=== PATIENT | male | born 1985 | race Caucasian/White ===

== ENCOUNTER 2017-01-01 12:48 | Emergency (ER) | payer BC ==
[2017-01-01 13:08] VITALS: BP 195/98
--- NOTE | 2017-01-01 13:27 | UC ---
Cardiac HPI - HPI Summary HPI Summary: The patient comes in today for: 1. Jaw/chest pain: Onset: 3 days ago. Palliative/provocative: Nothing seems to make it better or worse. Quality: Sharp. Region: Right jaw, and chest. Severity: Right now, it is 0/10. When "it hits" it is a 7/10 Time: Duration--"seconds." Associated symptoms: Pain: It starts at the ankle of the right jaw. It will shoot up to the right and to the right chin. This pain will last a few seconds. Then he will have a pain that goes down the back of his neck. He states that it is "down the midline" and down to the middle of his chest. At this point, the patient points to the lower sternum. He states that the pain will "radiate" to the sides. He comes in now because it has been continuing. Frequency: 3-5 times a day. Duration: "5-10 seconds." Cough: None. Temperature: None. Shortness of breath: None. Previous disease: He has a history of HTN and when 12-13 years old he was told that he had an enlarged heart which is OK now. 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 * - History of Current Complaint Chief Complaint: UCCardiac Stated Complaint: JAW AND NECK PAIN Time Seen by Provider: 01/01/17 13:14 Hx Obtained From: Patient - Allergy/Home Medications Allergies/Adverse Reactions: Allergies Allergy/AdvReac Type Severity Reaction Status Date / Time Penicillins Allergy Rash Verified 01/01/17 13:08 seasonal allergies Allergy Congestion Uncoded 01/01/17 13:08 Home Medications: Home Medications Fexofenadine-Pseudoephedrine [Veronica-D 24 Hour Allergy 180-240 mg] 1 01/01/17 [ History] Multiple Vitamins W/ Minerals [Multivitamin Men] 1 01/01/17 [History] PMH/Surg Hx/FS Hx/Imm Hx Previously Healthy: No - History of allergic rhinitis Endocrine History Of: Denies: Diabetes, Thyroid Disease, Hyperthyroidism, Hypothyroidism, Dyslipidemia Cardiovascular History Of: Reports: Cardiac Disorders - History of enlarged heart (now OK) when teenager., Hypertension - Resolved at age ~age 20 yrs Respiratory History Of: Reports: Asthma GI/ History Of: Denies: Gastroesophageal Reflux, Ulcer, Gastrointestinal Bleed, Gall Bladder Disease, Kidney Stones, Diverticulitis, Renal Disease, Urosepsis Neurological History Of: Denies: TIA, CVA, Dementia, Seizures, Migraine Psychological History Of: Denies: Anxiety, Depression, Bipolar Disorder, Schizophrenia, Post Traumatic Stress Disorder Cancer History Of: Denies: Lung Cancer, Colorectal Cancer, Breast Cancer, Prostate Cancer, Cervical Cancer Other History Of: Negative For: HIV, Hepatitis B, Hepatitis C, Anticoagulant Therapy - Surgical History Surgical History: None - Family History Known Family History: Positive: Hypertension, Diabetes, Other - No family history of UTI, KIdney stones, or kidney disease Negative: Cardiac Disease - Social History Occupation: Employed Full-time Alcohol Use: Occasionally Substance Use Type: None Smoking Status (MU): Never Smoked Tobacco Review of Systems Constitutional: Negative Skin: Negative Eyes: Negative ENT: Negative Respiratory: Negative Cardiovascular: Chest Pain Gastrointestinal: Negative Genitourinary: Negative All Other Systems Reviewed And Are Negative: Yes Physical Exam Triage Information Reviewed: Yes Appearance: Well-Appearing, No Pain Distress, Well-Nourished Vital Signs: Initial Vital Signs Temp 98.8 F 01/01/17 13:03 Pulse 124 01/01/17 13:03 Resp 20 01/01/17 13:03 BP 195/98 01/01/17 13:03 Pulse Ox 98 01/01/17 13:03 Blood pressure: Right arm, large cuff, sittin/70 Vital Signs Reviewed: Yes Eyes: Positive: Conjunctiva Clear. Negative: Discharge ENT: Positive: Hearing grossly normal, Other: - There is tenderness of palpation of the right middle scalene muscle as well as the right styloid process. However, pressure on these areas did not produce any pain in the chest. However, pressure in these areas did relate to the jaw pain that he has had.. Negative: Pharyngeal erythema, Nasal congestion, Nasal drainage, TM bulging, TM dull, TM red, Tonsillar swelling, Tonsillar exudate Dental: Negative: Gross Decay/Caries @, Dental Fracture @ Neck: Positive: Supple, Nontender, No Lymphadenopathy, Other: - NO enlarged lymph nodes of the anterior, posterior cervical, and supraclavicular areas.. Negative: Nuchal Rigidity Respiratory: Positive: Lungs clear, No respiratory distress, No accessory muscle use. Negative: Crackles, Wheezing Cardiovascular: Positive: RRR, No Murmur Abdomen Description: Positive: Nontender, No Organomegaly, Soft. Negative: Distended, Guarding Musculoskeletal: Positive: Strength Intact, ROM Intact, No Edema, Other: - He has tenderness to palpation of the right upper sternal border/rib conjunction. Neurological: Positive: Alert, Muscle Tone Normal Psychological: Positive: Normal Response To Family, Age Appropriate Behavior, Consolable Skin: Negative: rashes, breakdown Diagnostics - Laboratory Diagnostic Studies Completed/Ordered: EKG: Rate: 85. Rhythm: Sinus. Ectopy: None. Acute changes: None. - Radiology No standard instances Xray Interpretation: No Acute Changes Radiology Interpretation Completed By: Radiologist - Assessment/Plan Course Of Treatment: The patient was told that I don't know for sure what is causing his chest. pain. The patient was also told that there are many causes for chest pain--. some which are benign and some which are life-threatening. Furthermore, it was. mentioned that the life-threatening causes of chest pain can present with. minimal, atypical, or even no symptoms. Becasue of these facts and the fact. that we don't have here all the testing methods commonly used to assess chest. pain, and their timely resuts, my formal recommendation is for the patient to go to. the [facility] ([facility]) ER. However, the patient was told that since he did have physical findings which may explain his symptoms-- as atypical as they are--he may also do well with NSAIDS. He was told honestly I would not go to the ER and would take NSAIDS, but if I were wrong in that situation, I would be the one paying the lara if I were wrong. All his questions were answered and he decided to not go to the ER. - Clinical Impression Provider Diagnoses: Neck pain. Chest pain. Muscular strain. Discharge - Discharge Plan Condition: Stable Disposition: HOME Patient Education Materials: Chest Pain (ED), Cervical Sprain (ED) Referrals: Jacques Anthony MD [Primary Care Provider] - As Soon As Possible (If you are not going to the ER, please contact your primary care provider as soon as you can for re-evaluation. If you get worse, please re-consider going to the ER. )
--- NOTE | 2017-01-01 13:53 | RAD ---
INDICATION: Chest pain COMPARISON: None TECHNIQUE: PA and lateral dual-energy views were obtained. FINDINGS: Bones/Soft Tissues: There are no acute bony findings. Cardiomediastinal: The cardiomediastinal silhouette is normal. Lungs: There are no infiltrates. There is no pneumothorax. Pleura: There are no pleural effusions. Other: None IMPRESSION: NORMAL CHEST.
== END 2017-01-01 14:30 | disposition left against medical advice (07) ==
LOC: UCEAST 12:48
DX: M54.2 Cervicalgia (principal); R07.9 Chest pain, unspecified; T14.8 Other injury of unspecified body region; Z88.0 Allergy status to penicillin; J45.909 Unspecified asthma, uncomplicated; X58.XXXA Exposure to other specified factors, initial encounter; Y92.9 Unspecified place or not applicable
CPT/HCPCS: 71020; 93005; 99212; G0463

== ENCOUNTER 2017-11-05 08:05 | Emergency (ER) | payer BC ==
[2017-11-05 08:23] VITALS: BP 146/67
--- NOTE | 2017-11-05 08:37 | UC ---
Respiratory Complaint HPI - HPI Summary HPI Summary: Patient presents with complaints of chest congestion, cough with brownish sputum. He states he has been ill with cough x 9 days, he states his entire family has been ill. He also states he has had redness and swelling of his right lower eye lid, he states he has mild discomfort of the area that is red, otherwise he denies any visual changes or eye pain with movement. He denies any fever, chills, headache, neck pain, chest pain, dyspnea, abdominal pain, nausea , vomiting, or diarrhea. - History of Current Complaint Chief Complaint: UCGeneralIllness Stated Complaint: COUGH AND EYE COMPLAINT Time Seen by Provider: 11/05/17 08:18 Hx Obtained From: Patient Onset/Duration: Gradual Onset, Lasting Days Timing: Constant Severity Currently: Mild Character: Cough: Productive Aggravating Factors: Exertion, Deep Breaths, Recumbent Position Alleviating Factors: Upright Position, Spontaneous Resolution Associated Signs And Symptoms: Positive: URI, Nasal Congestion - Risk Factors Pulmonary Embolism Risk Factors: Negative Cardiac Risk Factors: Negative Pseudomonas Risk Factors: Negative Tuberculosis Risk Factors: Negative - Allergies/Home Medications Allergies/Adverse Reactions: Allergies Allergy/AdvReac Type Severity Reaction Status Date / Time Penicillins Allergy Rash Verified 11/05/17 08:23 seasonal allergies Allergy Congestion Uncoded 11/05/17 08:23 PMH/Surg Hx/FS Hx/Imm Hx Previously Healthy: Yes Other History Of: Negative For: HIV, Hepatitis B, Hepatitis C, Anticoagulant Therapy - Surgical History Surgical History: None - Family History Known Family History: Positive: Hypertension, Diabetes, Other - No family history of UTI, KIdney stones, or kidney disease Negative: Cardiac Disease - Social History Occupation: Employed Full-time Lives: With Family Alcohol Use: Rare Substance Use Type: None Smoking Status (MU): Never Smoked Tobacco - Immunization History Most Recent Influenza Vaccination: NOT UTD Review of Systems Constitutional: Negative Skin: Negative Eyes: Negative, Other - sye on right lower lid ENT: Negative Respiratory: Cough Cardiovascular: Negative Gastrointestinal: Negative Genitourinary: Negative Motor: Negative Neurovascular: Negative Musculoskeletal: Negative Neurological: Negative Psychological: Negative Is Patient Immunocompromised?: No All Other Systems Reviewed And Are Negative: Yes Physical Exam Triage Information Reviewed: Yes Appearance: Well-Appearing Vital Signs: Initial Vital Signs Temp 98.1 F 11/05/17 08:17 Pulse 91 11/05/17 08:17 Resp 18 11/05/17 08:17 BP 146/67 11/05/17 08:17 Pulse Ox 97 11/05/17 08:17 Vital Signs Reviewed: Yes Eyes: Positive: Other: - right eye lower lid with localized area of erythma, induration. no flucuance noted. ENT Exam: Normal Neck exam: Normal Neck: Positive: 1 Respiratory: Positive: Lungs clear, Normal breath sounds, No respiratory distress Cardiovascular Exam: Normal Abdominal Exam: Normal Musculoskeletal Exam: Normal Neurological Exam: Normal Psychological Exam: Normal Skin Exam: Normal UC Diagnostic Evaluation - Laboratory O2 Sat by Pulse Oximetry: 97 Respiratory Course/Dx - Course Course Of Treatment: Patient presents with complaints of right eye lid swelling , with localized area of induration, findings consistent with sty and no evidence of periorbital cellulitis. He also presents clincally with bronchitis. He is going to be treated with erythrmycin eye ointment, and zpk for bronchitis. I told the patient that if his eye swelling get worse he would need to go to the ER, and if he need re-evaluation Monday I referred him to Dr. Castañeda. He verbalzied understanding of and in agreement with the discharge plan. - Differential Dx/Diagnosis Differential Diagnosis/HQI/PQRI: Bronchitis, Other - sye Provider Diagnoses: bronchitis. sty Discharge - Discharge Plan Condition: Stable Disposition: HOME Prescriptions: Azithromycin TAB* [Zithromax TAB (Z-JM) 250 mg #6 tabs] 250 mg PO DAILY #6 tab Erythromycin OPTH OINT* [Erythromycin 0.5% OPTH OINT*] 1 applic RIGHT EYE TID # 1 ophth.oint Patient Education Materials: Stye (ED), Acute Bronchitis (ED) Referrals: Jacques Anthony MD [Primary Care Provider] - Cornelius Castañeda MD [Medical Doctor] -
== END 2017-11-05 08:38 | disposition home or self-care (01) ==
LOC: UCEAST 08:05
DX: J40 Bronchitis, not specified as acute or chronic (principal); H00.022 Hordeolum internum right lower eyelid; Z88.0 Allergy status to penicillin; Z91.048 Other nonmedicinal substance allergy status
CPT/HCPCS: 99212; G0463

== ENCOUNTER 2017-11-17 07:06 | Emergency (ER) | payer BC ==
--- NOTE | 2017-11-17 08:05 | UC ---
Abdominal Pain Male HPI - HPI Summary HPI Summary: ONSET OF NAUSEA AROUND 7PM LAST NIGHT. AFTER GOING TO SLEEP WAS AWAKENED BY SHARP RUQ PAIN AND "BURNING" ACROSS HIS WHOLE ABDOMEN THAT WRAPPED AROUND TO HIS BACK. WAS UNABLE TO FALL BACK ASLEEP DUE TO THE DISCOMFORT. PAIN WAS WORSE WHEN LAYING ON THE RIGHT SIDE. THIS MORNING STATES HE FEELS BETTER BUT HAS PERSISTENT LOW LEVEL PAIN AND NAUSEA. NON SMOKER. NO PREVIOUS ABDOMINAL SURGERIES. - History of Current Complaint Chief Complaint: UCAbdominalPain Stated Complaint: CONGESTION BURNING FEELING IN RIB AREA Time Seen by Provider: 11/17/17 07:13 Hx Obtained From: Patient Onset/Duration: Sudden Onset, Lasting Hours, Still Present Timing: Constant Severity Initially: Moderate Severity Currently: Mild Pain Intensity: 7 Pain Scale Used: 0-10 Numeric Location: Diffuse Radiates to: Back Character: Burning, Sharp Aggravating Factor(s): Nothing Alleviating Factor(s): Nothing Associated Signs And Symptoms: Positive: Back Pain, Nausea. Negative: Diaphoresis, Fever, Cough, Chest Pain, Dizzy, Constipation, Blood in Stool, Urinary Symptoms, Vomiting, Diarrhea - Allergies/Home Medications Allergies/Adverse Reactions: Allergies Allergy/AdvReac Type Severity Reaction Status Date / Time Penicillins Allergy Rash Verified 11/05/17 08:23 seasonal allergies Allergy Congestion Uncoded 11/05/17 08:23 PMH/Surg Hx/FS Hx/Imm Hx Respiratory History: Asthma Other History Of: Negative For: HIV, Hepatitis B, Hepatitis C, Anticoagulant Therapy - Surgical History Surgical History: None - Family History Known Family History: Positive: Hypertension, Diabetes, Other - No family history of UTI, KIdney stones, or kidney disease Negative: Cardiac Disease Family History: NO FAM H/O AAA - Social History Alcohol Use: Rare Substance Use Type: None Smoking Status (MU): Never Smoked Tobacco - Immunization History Most Recent Influenza Vaccination: NOT UTD Review of Systems Constitutional: Negative Respiratory: Negative Cardiovascular: Negative Gastrointestinal: Abdominal Pain, Nausea Genitourinary: Negative All Other Systems Reviewed And Are Negative: Yes Physical Exam Triage Information Reviewed: Yes Appearance: Well-Appearing, No Pain Distress, Well-Nourished Vital Signs: Initial Vital Signs Temp 97.9 F 11/17/17 07:14 Pulse 91 11/17/17 07:14 Resp 18 11/17/17 07:14 BP 142/85 11/17/17 07:14 Pulse Ox 100 01/12/18 07:14 Vital Signs Reviewed: Yes Eyes: Positive: Conjunctiva Clear ENT: Positive: Hearing grossly normal, Pharynx normal, TMs normal Neck: Positive: Supple, Nontender, No Lymphadenopathy Respiratory Exam: Normal Cardiovascular Exam: Normal Abdomen Description: Positive: Nontender, Soft, Other: - NO PULSATILE MASS OR BRUITS. NO RAMIREZ'S SIGN. NO REBOUND OR RIGIDITY. Negative: CVA Tenderness (R) , CVA Tenderness (L), Distended Bowel Sounds: Positive: Present Musculoskeletal: Positive: No Edema Neurological: Positive: Alert Psychological: Positive: Age Appropriate Behavior Skin: Negative: rashes Diagnostics - Laboratory Diagnostic Studies Completed/Ordered: URINE DIP UNREMARKABLE - Radiology RUQ ULTRASOUND Xray Interpretation: Positive (See Comments) - Cholelithiasis without evidence of biliary ductal dilatation. Radiology Interpretation Completed By: Radiologist Abd Pain Male Course/Dx - Differential Dx/Clinical Impression Provider Diagnoses: ABDOMINAL PAIN/CHOLELITHIASIS Discharge - Discharge Plan Condition: Stable Disposition: HOME Prescriptions: Ondansetron ODT TAB* [Zofran Odt TAB*] 4 mg PO Q6H PRN #20 tab.odt PRN Reason: Nausea/Vomiting Patient Education Materials: Biliary Colic (ED), Gallstones (ED), Abdominal Pain (ED) Referrals: Mirna Cardozo MD [Medical Doctor] - (CALL IF SYMPTOMS PERSIST) Jacques Anthony MD [Primary Care Provider] - If Needed Additional Instructions: UNCLEAR ETIOLOGY OF YOUR DISCOMFORT. ULTRASOUND SHOWS GALLSTONES BUT NO OBSTRUCTION. YOU MAY BE EXPERIENCING SOME DISCOMFORT DUE TO THESE STONES. WATCH YOUR DIET - LOW FAT. IF YOUR SYMPTOMS PERSIST CONSIDER EVAL BY SURGERY FOR GALLBLADDER REMOVAL. URINE TEST UNREMARKABLE. BLOOD COUNT DONE TODAY AND RESULT PENDING. WE WILL CALL YOU WITH ANY ABNORMAL RESULTS. ALSO CONSIDER A TRANSIENT VIRAL INFECTION VS. HEARTBURN. TAKE OTC ANTACID SUCH PRILOSEC OR PREVACID TO SEE IF THIS IS HELPFUL. AVOID POSSIBLE TRIGGER FOODS. GO TO THE ER WITHOUT FAIL IF YOU DEVELOP WORSENING PAIN, FEVER, NAUSEA, VOMITING OR ANY OTHER CONCERNING SYMPTOMS. YOUR BLOOD PRESSURE WAS ELEVATED TODAY (142/85). THIS MAY BE DUE TO YOUR ACUTE CONDITION. MONITOR AND FOLLOW-UP WITH YOUR PCP WITHIN 4 WEEKS IF IT HAS NOT RETURNED TO NORMAL.
--- NOTE | 2017-11-17 09:11 | RAD ---
Indication: Right upper quadrant pain and malaise Real-time sonography of the right upper quadrant was performed. The liver is normal in size. No focal lesions or intrahepatic ductal dilatation is noted. The gallbladder demonstrates multiple echogenic foci with posterior acoustic shadowing consistent with cholelithiasis. No pericholecystic fluid or wall thickening is noted. Common duct measures 2 mm. The right kidney measures 10.4 x 4.3 x 4.9 cm. No hydronephrosis is noted. The pancreas head, neck and proximal body demonstrates no mass effect or ductal dilatation. Aorta and inferior vena cava are unremarkable. IMPRESSION: Cholelithiasis without evidence of biliary ductal dilatation.
[2017-11-17 09:32] VITALS: BP 159/91
[2017-11-17 11:23] LABS: ABS Basophils 0 10^3/ul (0-0.2); ABS Eosinophils 0 10^3/ul (0-0.6); ABS Lymphocytes 1.5 10^3/ul (1.0-4.8); ABS Monocytes 0.4 10^3/ul (0-0.8); ABS Neutrophils 4.2 10^3/ul (1.5-7.7); ABS Nucleated RBC 0 10^3/ul; Eosinophil % 0.7 % (0-6); Hematocrit 45 % (42-52); Hemoglobin 16.1 g/dl (14.0-18.0); Lymphocyte % 24.7 % (25-47); Mean Corpuscular HGB Conc 36 g/dl (31-36); Mean Corpuscular Hemoglobin 30 pg (27-31); Mean Corpuscular Volume 83 fL (80-94); Mean Platelet Volume 8 um3 (7.4-10.4); Nucleated Red Blood Cells % 0.7; Platelet Count 251 10^3/ul (150-450); Red Blood Count 5.38 10^6/ul (4.0-5.4); Red Cell Distribution Width 13 % (10.5-15); White Blood Count 6.1 10^3/ul (3.5-10.8)
== END 2017-11-17 09:32 | disposition home or self-care (01) ==
LOC: UCEAST 07:06
DX: R10.11 Right upper quadrant pain (principal); K80.20 Calculus of gallbladder without cholecystitis without obstruction; J45.909 Unspecified asthma, uncomplicated; Z88.0 Allergy status to penicillin
CPT/HCPCS: 36415; 76705; 81003; 85025; 99212; G0463

== ENCOUNTER 2019-01-19 07:05 | Emergency (ER) | payer BC ==
--- NOTE | 2019-01-19 07:14 | UC ---
Respiratory Complaint HPI - HPI Summary HPI Summary: Patient Chief Complaint: Healthy 33-year-old white male with a chief complaint of 10 days of significant cough producing initially brown phlegm, worse when trying to go to sleep and when he wakes up first morning. Over the past 10 days he has noted an increased temperature up to 101. He is also developed a sore throat and now has significant sinus pain and congestion. He also notes that both eyes are getting red. He does have a history in the distant past of asthma but has never used his inhaler recently. His past medical history states that he had "an enlarged heart." But this was a childhood complaint that according to the patient was resolved at that time. Note is made of a blood pressure of 165/99, pulse ox of 96 and a temperature of 99.1. The patient states that he has white coat syndrome and has a blood pressure machine at home he checks his blood pressure and it is usually within normal limits. MD note: vital signs stable. Vital signs beyond normal range reviewed. 165/99, no meds; p ox=96. temp=99.1 Nurses Note Reviewed. "Patient complains of cough, sore throat x a week and a half. Patient complains of productive cough with a large amount of phlegm. Chills and fevers around 101F. Patient complains of pressure behind his eyes and very red eyes": Visit History Reviewed. Noncontributory to present complaint. Medications & Allergies Reviewed. - History of Current Complaint Stated Complaint: COUGH SORE THROAT Time Seen by Provider: 01/19/19 07:06 - Allergies/Home Medications Allergies/Adverse Reactions: Allergies Allergy/AdvReac Type Severity Reaction Status Date / Time Penicillins Allergy Rash Verified 01/19/19 07:09 seasonal allergies Allergy Congestion Uncoded 11/05/17 08:23 Home Medications: Home Medications Ascorbic Acid [Vitamin C] 500 mg PO DAILY 01/19/19 [History Confirmed 01/19/19] Elderberry Eliqir 1 dose PO DAILY PRN 01/19/19 [History Confirmed 01/19/19] Guaifenesin/Dextromethorphan [Robitussin Yyyhu-Sxaie-Qdjs Dm] 1 tab PO BEDTIME 01/19/19 [History Confirmed 01/19/19] L.acidoph,Paracasei, B.lactis [Probiotic] 1 tab PO DAILY 01/19/19 [History Confirmed 01/19/19] Oscillococcinum 1 dose PO BID 01/19/19 [History Confirmed 01/19/19] PMH/Surg Hx/FS Hx/Imm Hx - Additional Past Medical History Additional PMH: PMH reviewed. Family History: Positive history of: -HYPTERTENSION -Denies heart disease, stroke, diabetes, cancer. 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 Family Environment: lives with family Habits: non smoker Previously Healthy: Yes Other History Of: Negative For: HIV, Hepatitis B, Hepatitis C, Anticoagulant Therapy - Surgical History Surgical History: None - Family History Known Family History: Positive: Hypertension, Diabetes, Other - No family history of UTI, KIdney stones, or kidney disease Negative: Cardiac Disease Family History: NO FAM H/O AAA - Social History Alcohol Use: Rare Substance Use Type: None Smoking Status (MU): Never Smoked Tobacco - Immunization History Most Recent Influenza Vaccination: NOT UTD Review of Systems All Other Systems Reviewed And Are Negative: Yes Constitutional: Positive: Fever Eyes: Positive: Eye Redness - bilateral Respiratory: Positive: Cough. Negative: Shortness Of Breath Cardiovascular: Positive: Negative Gastrointestinal: Positive: Nausea. Negative: Abdominal Pain Genitourinary: Positive: Negative Is Patient Immunocompromised?: No - Comments Additional Review of Systems Comments: A 12 point review of systems was completed and was significantly positive for: cough, sinus discomfort, eye redness . The remainder of the review was negative except as stated above in the ROS or HPI. Physical Exam - Summary Physical Exam Summary: Appearance: The patient is well-appearing, is in no pain or distress, and is well-nourished. Eyes: Conjunctiva mildly injected. Pupils are equal and reactive to light and accommodation. Extra ocular muscle movement is intact. ENT: The hearing is grossly normal, the pharynx is normal, and the TMs are normal. There is no muffled or hoarse voice. No stridor. Neck: The neck is supple and there is no lymphadenopathy. Maxillary sinus tenderness to palpation. Respiratory: The chest is nontender to palpation and without crepitus. The lungs are clear, there are normal breath sounds, and there is no respiratory distress. Extended expiratory phase. Few rhonchi. Cardiovascular: Heart sounds reveal a regular rate and rhythm. There are no clicks, rubs or murmurs. There are no carotid bruits or thrills. Circulation is grossly intact. Abdomen: The abdomen is soft and nontender. There is no organomegaly. Bowel sounds are present and within normal limits. No point tenderness at McBurneys point. Musculoskeletal: Strength is intact. The patient moves all extremities. Neurological: The patient is alert. Motor and sensory are examination grossly intact. Speech is normal. Psychological: The patient displays age appropriate behavior Skin: Negative for rashes. Triage Information Reviewed: Yes Vital Signs Reviewed: Yes Respiratory Course/Dx - Course Course Of Treatment: Patient Chief Complaint: Healthy 33-year-old white male with a chief complaint of 10 days of significant cough producing initially brown phlegm, worse when trying to go to sleep and when he wakes up first morning. Over the past 10 days he has noted an increased temperature up to 101. He is also developed a sore throat and now has significant sinus pain and congestion. He also notes that both eyes are getting red. He does have a history in the distant past of asthma but has never used his inhaler recently. His past medical history states that he had "an enlarged heart." But this was a childhood complaint that according to the patient was resolved at that time. Note is made of a blood pressure of 165/99, pulse ox of 96 and a temperature of 99.1. The patient states that he has white coat syndrome and has a blood pressure machine at home he checks his blood pressure and it is usually within normal limits. Physical examination shows rhonchi and extended expirations, red eyes, mild, and tender maxillary sinuses. My dx is bronchitis with bronchospasm, sinus congestion with possible infection, and bilateral eye injected, possible early conjunctivitis of unclear cause, viral or bacterial. I will treat with amoxcillin, albuterol with spacer, and erythromycin eye ointment. Medications have been included in the original chart and reviewed. HYPERTENSION STATUS REVIEWED. HTN URGENT/EMERGENT: Patient is Urgent/Emergent. BP elevated due to current condition w/o HTN in PMH. Patient will recheck blood pressure over the next month, and follow up with PCP if blood pressure is above 120/80. - Differential Dx/Diagnosis Differential Diagnosis/HQI/PQRI: Bronchitis, Sinusitis Provider Diagnosis: Bronchospasm with bronchitis, acute, Sinusitis, Conjunctivitis Provider Diagnosis: (Ruled Out): Bronchitis Discharge - Sign-Out/Discharge Documenting (check all that apply): Patient Departure All imaging exams completed and their final reports reviewed: No Studies - Discharge Plan Condition: Stable Disposition: HOME Prescriptions: Albuterol HFA INHALER* [Ventolin HFA Inhaler*] 1 - 2 puff INH Q4H #1 mdi MDD 8 Azithromycin TAB* [Zithromax TAB*] 250 mg PO DAILY #6 tab Erythromycin OPTH OINT* [Erythromycin 0.5% OPTH OINT*] 1 applic RIGHT EYE TID # 1 ophth.oint MDD every 2 hours Inhaler, Assist Devices [Aerochamber Mv] 1 mis XX Q6HR #1 mis Referrals: Jacques Anthony MD [Medical Doctor] - Additional Instructions: WE DISCUSSED: PLEASE SEEK CARE AT THE EMERGENCY DEPARTMENT IF SYMPTOMS WORSEN OR IF NEW SYMPTOMS DEVELOP. FOLLOW UP WITH YOUR PRIMARY CARE PHYSICIAN IF CONDITION CONTINUES BEYOND 3 DAYS WITHOUT IMPROVEMENT. We are open from 7 a.m. to 10 p.m. Call us with any questions or concerns. YOUR DIAGNOSIS IS: bronchitis, bronchospasm, conjunctivitis, sinusitis. YOUR PRESCRIPTION RECOMMENDATION IS: zithromax antibiotic, albuterol inhalation and eye antibiotic. OTHER INSTRUCTIONS: hot tea and honey; hot showers; steam, warm water gargels. Hypertension Discharge Instructions: Your blood pressure reading today was 165/99, indicating HYPERTENSION. Follow- up with your primary care provider within 4 weeks for blood pressure check and appropriate recommendations and treatment, as needed. For pain: Ibuprofen (Motrin and other brand names) 400-600mg PLUS acetaminophen (Tylenol and other brand names) 500mg - 1000mg every 8 hours. Maximum is 3 doses a day. If this dosage is required for more than 5 days, you should re-check with your doctor. The combination of these two over-the- counter medications can be more effective than each one taken alone. Please check with the pharmacist if you have questions about your allergies to these medications. - Billing Disposition and Condition Condition: STABLE Disposition: Home
[2019-01-19 08:25] VITALS: BP 144/90
== END 2019-01-19 08:19 | disposition home or self-care (01) ==
LOC: UCEAST 07:05
DX: J20.9 Acute bronchitis, unspecified (principal); J01.90 Acute sinusitis, unspecified; J02.9 Acute pharyngitis, unspecified; H10.9 Unspecified conjunctivitis; R03.0 Elevated blood-pressure reading, without diagnosis of hypertension; J45.909 Unspecified asthma, uncomplicated; Z88.0 Allergy status to penicillin; Z91.09 Other allergy status, other than to drugs and biological substances
CPT/HCPCS: 99212; G0463